=== PATIENT | female | born 2005 | race Caucasian/White ===

== ENCOUNTER 2024-06-07 08:14 | Outpatient (CLI) | payer BC | END 2024-06-07 08:15 | disposition home or self-care (01) | LOC: BICMRI 08:14 | PROVIDERS: ATTEND Orthopaedic Surgery Hand Surgery | DX: M67.432 Ganglion, left wrist (principal); M94.8X8 Other specified disorders of cartilage, other site; M65.88 Other synovitis and tenosynovitis, other site ==